=== PATIENT | female | born 1945 | race Caucasian/White ===

== ENCOUNTER 2017-08-11 15:10 | Emergency (ER) | payer OTHER ==
[~2017-08-11] VITALS: Ht 167.6 cm; Wt 79.4 kg
--- NOTE | ~2017-08-11 | EKG ---
[place] [address] [facility] [employer] [facility] [place] [address] ELECTROCARDIOGRAM REPORT Name: JOCELINEMICHELLE Joao Room #: [facility]#: [id number] Admission: 08/11/17 Attend Phys: Discharge: 08/11/17 Date of : 47 Report #: [id number] THIS REPORT FOR: //name// [facility] ED Test Date: 2017-08-11 Test Time: 16:06:47 Pat Name: MICHELLE CAR Department: Room: Gender: F Animal Science Instructor: hi : 1945 Requested By: Lobo Dobbins Order Number: [id number] MD: Homero Lara Measurements Intervals [place] Rate: 73 P: -82 DE: 180 QRS: 20 QRSD: 95 T: -12 QT: 412 QTc: 454 Interpretive Statements Sinus or ectopic atrial rhythm Compared to ECG 02/25/2016 15:03:59 Ectopic atrial rhythm now present Electronically Signed On 08-12-2017 7:51:17 CDT by Homero Lara [email or web address] <ELECTRONICALLY SIGNED> By: Homero Lara MD 08/12/17 0751 D: 06/1605 05 Homero Lara MD /STEPHANIE
[~2017-08-11 15:10] MED LIST: ADULT LOW DOSE81 MG PO; AMARYL4 MG PO; AMIODARONE HCL400 MG PO; AMLODIPINE BESY10 MG PO; AMLODIPINE BESYL5 MG PO; ASPIR 8181 MG PO; ASPIRIN81 M2 PO; ATIVAN0.5 MG PO; CATAPRES0.2 MG PO; CIPRO500 MG PO; CIPROFLOXACIN500 M1 PO; DIFLUCAN150 MG PO; DILTIAZEM 24HR180 M1 PO; DILTIAZEM 24HR240 M1 PO; DOXYCYCLINE HY100 MG PO; FLOMAX0.4 MG PO; FLONASE 0.05%50 MCG NASAL; GLUCOPHAGE500 MG PO; HYDROCHLOROTHIA25 M1 PO; HYDROCODON-ACE1 EAC8 PO; HYDROCODONE-AP1 EAC6 PO; HYDROCODONE-APA1 TA1 PO; IRON325 PO; LASIX 40 MG TAB40 M2 PO; LIDOCAINE HCL 210 M1; LISINOPRIL-HCT1 EAC2 PO; LISINOPRIL20 MG PO; MEDROLDOSEPACK; METFORMIN HCL500 MG PO; METOPROLOL SUCC50 MG PO; MOBIC15 MG PO; MULTIVITAMINS PO; MULTIVITAMINS1 EAC7; NORVASC10 MG PO; PACERONE 200 M200 M1 PO; PERCOCET 5-3251 EACH PO; PRINZIDE 20-251 EACH PO; ROBAXIN 750 MG750 M1 PO; TOPROL XL25 MG PO; TRADJENTA5 MG PO; TYLENOL325 MG PO; XARELTO20 MG PO
[2017-08-11 15:45] LABS: ABSOLUTE NEUTROPHILS 8.2 thou/uL (1.4-8.2); EOSINOPHILS 4.7 % (0.0-3.0); HEMATOCRIT 40.1 % (37.0-47.0); HEMOGLOBIN 13.1 gm/dL (12.0-15.0); LYMPHOCYTES 12.8 % (24.0-44.0); MCH 27.8 pg (26.0-34.0); MCHC 32.7 g/dL (28.0-37.0); MCV 84.9 fL (80.0-100.0); MONOCYTES 6.4 % (1.0-8.0); PLATELET COUNT 493 thou/uL (150-400); POLYS 75.1 % (36.0-66.0); RBC 4.72 mil/uL (4.20-5.00); RDW 15.4 % (10.5-14.5); WBC 10.9 thou/uL (4.0-11.0)
[2017-08-11 15:55] LABS: ANION GAP 8 mmol/L (7-16); BUN 24 mg/dL (7-18); CALCIUM 9.3 mg/dL (8.5-10.1); CHLORIDE 104 mmol/L (98-107); CO2 26 mmol/L (21-32); GLUCOSE 125 mg/dL (74-106); POTASSIUM 4.1 mmol/L (3.5-5.1); SODIUM 138 mmol/L (136-145)
[2017-08-11 16:03] LABS: ALBUMIN 3.6 g/dL (3.4-5.0); MAGNESIUM 1.5 mg/dL (1.8-2.4); SGOT 23 U/L (15-37); SGPT 33 U/L (30-65); TOTAL BILIRUBIN 0.4 mg/dL (<0.1-1.0); TOTAL PROTEIN 7.4 g/dL (6.4-8.2); TROPONIN-I < 0.04 ng/mL (<0.06)
[2017-08-11] MEDS ORDERED: VALIUM2 MG PO (16:36)
[2017-08-11] MEDS ORDERED: MAG-OXIDE400 MG PO (16:36)
[2017-08-11] MEDS ORDERED: ANTIVERT25 MG PO (16:36)
[2017-08-11 17:17] LABS: URINE BILIRUBIN NEGATIVE (Negative); URINE BLOOD NEGATIVE (Negative); URINE CLARITY CLEAR; URINE COLOR YELLOW; URINE GLUCOSE-RANDOM* NEGATIVE (Negative); URINE KETONES NEGATIVE (Negative); URINE PROTEIN (DIPSTICK) TRACE (Negative); URINE SPECIFIC GRAVITY 1.025 (1.005-1.035); URINE UROBILINOGEN 0.2 E.U./dl (0.2-1.0)
[2017-08-11 17:21] LABS: URINE LEUKOCYTES-REFLEX TRACE (Negative); URINE NITRITE-REFLEX POSITIVE (Negative)
[2017-08-11] MEDS ORDERED: PREDNISONE 20 M20 MG PO (17:23)
[2017-08-11 17:28] LABS: SQUAMOUS 0-3 Few /LPF (0-3)
[2017-08-11 17:29] LABS: BACTERIA-REFLEX >30 Many /HPF (None Seen); CASTS None Seen /LPF (None Seen); CRYSTALS None Seen /LPF (None Seen); URINE WBC-REFLEX 6-15 Few /HPF (0-5)
[2017-08-11 17:30] LABS: URINE RBC None Seen /HPF (0-2)
== END 2017-08-11 18:15 | disposition home or self-care (01) ==
LOC: ER 15:10
PROVIDERS: Emergency Medicine
DX: H81.10 Benign paroxysmal vertigo, unspecified ear (principal); E83.42 Hypomagnesemia; J44.9 Chronic obstructive pulmonary disease, unspecified; E11.9 Type 2 diabetes mellitus without complications; M54.9 Dorsalgia, unspecified; G89.29 Other chronic pain; E78.00 Pure hypercholesterolemia, unspecified; I11.0 Hypertensive heart disease with heart failure; I50.9 Heart failure, unspecified; Z88.0 Allergy status to penicillin; Z88.1 Allergy status to other antibiotic agents; Z88.2 Allergy status to sulfonamides

== ENCOUNTER 2017-12-09 21:42 | Inpatient (IN) | payer OTHER ==
[~2017-12-09] VITALS: Ht 167.6 cm; Wt 79.5 kg
--- NOTE | ~2017-12-09 | EKG ---
[address] [address] ELECTROCARDIOGRAM REPORT Name: JOCELINEMICHELLE Joao Room #: 202-P ADM IN M.R.#: [id number] Admission: 12/09/17 Attend Phys: Marjorie Kendall Discharge: Date of : 47 Report #: [id number] THIS REPORT FOR: //name// [facility] ED Test Date: 2017-12-09 Test Time: 22:48:13 Pat Name: MICHELLE CAR Department: Room: 202 Gender: F Air Battle Manager: juan ramon : 1945 Requested By: Kody Bailey Order Number: [id number] MD: Homero Lara Measurements Intervals [place] Rate: 116 P: NE: QRS: 16 QRSD: 90 T: -2 QT: 409 QTc: 569 Interpretive Statements Atrial fibrillation Compared to ECG 08/11/2017 16:06:47 Ectopic atrial rhythm no longer present Electronically Signed On 12-10-2017 8:21:33 CDT by Homero Lara [email or web address] <ELECTRONICALLY SIGNED> By: Homero Lara MD 12/10/17 0821 2248 47 Homero Lara MD /STEPHANIE
--- NOTE | ~2017-12-09 | HC ---
[facility] [place] [place] [address] CONSULTATION Name: JOCELINEMICHELLE Shepherd Room #: 202-P [facility] IN M.R.#: [id number] Admission: 12/09/17 Attend Phys: Marjorie Kendall Discharge: Date of : 47 Report #: [id number] THIS REPORT FOR: //name// CC: Marjorie Arora DATE OF SERVICE: 12/10/2017 HISTORY OF PRESENT ILLNESS: The patient is a 72-year-old female who was seen on 12/10/2017. I was not able to write a note at that time because the patient was not on my list. The patient was seen Wednesday afternoon after a code stroke had been called. The patient had slurred speech and left-sided weakness. At that time, a fingerstick was done. The patient's blood sugar was 65. However, a chemistry panel was not drawn. The patient was given apple juice. A fingerstick was repeated and the patient's blood sugar was 80. The patient had initially been admitted to the hospital for increasing disorientation and difficulty finding words. She had not been taking her daily medications, which is unusual for her. When the patient's daughter went to the home that evening, she noticed that her mother had vomited. The patient had also complained of headache. Although, the patient did not have a headache at that time, the patient has a history of atrial fibrillation and was on Xarelto. When I saw the patient, her daughter was in the room. She stated that her mother had taken Xarelto within the past 48 hours. When her mother was admitted to the hospital, she was found to have a urinary tract infection. The patient lives with her son. The patient's daughter with whom I spoke was unhappy because of the way her brother was taking care of her mother. She was not pleased with the kind of food the patient was eating. She knew that her brother was buying cookies and the daughter did not want her mother eating those because she has diabetes. PAST MEDICAL HISTORY: Diabetes mellitus, hypertension, stroke, atrial fibrillation, chronic kidney disease, congestive heart failure, peripheral neuropathy, hyperlipidemia. PAST SURGICAL HISTORY: Partial hysterectomy, lung surgery in 1995. MEDICATIONS: Amiodarone 200 mg b.i.d., clonidine 0.1 mg b.i.d., metoprolol 50 mg b.i.d., Norvasc 10 mg daily, Xarelto 20 mg daily. At home, the patient also takes p.r.n. meclizine 25 mg and p.r.n. diazepam. ALLERGIES: CEPHALEXIN, LATEX, PENICILLIN, AND SULFA. PHYSICAL EXAMINATION: VITAL SIGNS: Temperature 37.1, pulse rate 129, respiratory rate 18, blood pressure 150/112. Bedside pulse oximetry 95% on room air. LABORATORY DATA: White blood cell count 14.2, hemoglobin 12.5, hematocrit 37.7, [address] [address] CONSULTATION Name: JOCELINEMICHELLE Shepherd Room #: 202-P [facility] IN ..#: [id number] Admission: 12/09/17 Attend Phys: Marjorie Kendall Discharge: Date of : 47 Report #: [id number] MCV 86.2, platelet count 451,000. Urinalysis 1+ leukocyte esterase, many bacteria. Chemistry: Sodium 141, potassium 2.9, chloride 103, carbon dioxide 27, BUN 21, creatinine 1.2, glucose 116, calcium 8.3, phosphorus 4.1, magnesium 1.7, total bilirubin 0.7, AST 23, ALT 24, alkaline phosphatase 76, total protein 7.9, albumin 2.6, B12 of 125, folate 16.2. TSH 3.181. IMAGING: CT scan of the head demonstrates atrophy, no acute process. MRI of the head demonstrates moderate to severe periventricular and subcortical white matter disease, no acute intracranial abnormality seen. NEURO EXAM: Cranial nerves 2-12 are grossly intact. Motor exam demonstrates symmetrical strength in all 4 extremities with tone and bulk normal. Reflexes are trace throughout. Plantar responses are mute bilaterally. There is no evidence of dysmetria. Gait is not tested. IMPRESSION: This patient most likely has mild cognitive impairment. The MRI of the head was ordered yesterday when I saw her as was the B12 level and TSH. The B12 level is now proven to be quite low and she will require supplemental IM B12. I would not give this patient diazepam as it can interfere with her memory in addition to her balance as well. I think the patient would also benefit from PT, OT and perhaps even a rehab consult. Her daughter tells me the patient is quite inactive. I thank you for your kind referral of the patient. <ELECTRONICALLY SIGNED> By: Julia Hall DO 12/15/17 1155 1114 2356 Julia Hall DO /nt
[~2017-12-09 21:42] MED LIST changes: +ANTIVERT25 MG PO; +MAG-OXIDE400 MG PO; +PREDNISONE 20 M20 MG PO; +VALIUM2 MG PO
[2017-12-09 21:45] VITALS: BP 155/67
[2017-12-09 23:10] LABS: ABSOLUTE NEUTROPHILS 15.8 thou/uL (1.4-8.2); BASOPHILS 0.5 % (0.0-2.0); EOSINOPHILS 0.3 % (0.0-3.0); HEMATOCRIT 41.1 % (37.0-47.0); HEMOGLOBIN 13.6 gm/dL (12.0-15.0); LYMPHOCYTES 6.5 % (24.0-44.0); MCH 28.8 pg (26.0-34.0); MCHC 33.2 g/dL (28.0-37.0); MCV 86.7 fL (80.0-100.0); MONOCYTES 3.6 % (1.0-8.0); PLATELET COUNT 519 thou/uL (150-400); POLYS 89.1 % (36.0-66.0); RBC 4.73 mil/uL (4.20-5.00); RDW 14.7 % (10.5-14.5); WBC 17.8 thou/uL (4.0-11.0)
[2017-12-09 23:19] LABS: ANION GAP 11 mmol/L (7-16); BUN 29 mg/dL (7-18); CALCIUM 10.2 mg/dL (8.5-10.1); CHLORIDE 98 mmol/L (98-107); CO2 25 mmol/L (21-32); GLUCOSE 211 mg/dL (74-106); POTASSIUM 4.7 mmol/L (3.5-5.1); SODIUM 134 mmol/L (136-145)
[2017-12-09 23:28] LABS: ALBUMIN 3.6 g/dL (3.4-5.0); SGOT 23 U/L (15-37); SGPT 24 U/L (30-65); TOTAL BILIRUBIN 0.7 mg/dL (<0.1-1.0); TOTAL PROTEIN 7.9 g/dL (6.4-8.2); TROPONIN-I <0.06 ng/mL (<0.06)
[2017-12-09 23:28] LABS: URINE BLOOD TRACE (Negative); URINE CLARITY CLEAR; URINE COLOR YELLOW; URINE GLUCOSE-RANDOM* NEGATIVE (Negative); URINE KETONES TRACE (Negative); URINE NITRITE-REFLEX NEGATIVE (Negative); URINE PROTEIN (DIPSTICK) 2+ (Negative); URINE SPECIFIC GRAVITY >= 1.030 (1.005-1.035); URINE UROBILINOGEN 0.2 E.U./dl (0.2-1.0)
[2017-12-09 23:29] LABS: URINE LEUKOCYTES-REFLEX 1+ (Negative)
[2017-12-09 23:30] LABS: ICTOTEST (BILI CONFIRMATORY) Negative (Negative); URINE BILIRUBIN NEGATIVE (Negative)
[2017-12-09 23:37] LABS: BACTERIA-REFLEX >30 Many /HPF (None Seen); CRYSTALS None Seen /LPF (None Seen); FINE GRANULAR CASTS 4-10 Moderate /LPF (None Seen); SQUAMOUS 0-3 Few /LPF (0-3); URINE WBC-REFLEX >25 Many /HPF (0-5)
[2017-12-09 23:38] LABS: WBC CLUMPS Few (None Seen)
[2017-12-10] VITALS (8 sets, daily range): BP systolic 106–159; BP diastolic 52–115
[2017-12-10 03:39] LABS: HEMATOCRIT 37.7 % (37.0-47.0); HEMOGLOBIN 12.5 gm/dL (12.0-15.0); MCH 28.5 pg (26.0-34.0); MCHC 33.1 g/dL (28.0-37.0); MCV 86.2 fL (80.0-100.0); RBC 4.37 mil/uL (4.20-5.00); RDW 14.8 % (10.5-14.5); WBC 14.2 thou/uL (4.0-11.0)
[2017-12-10 03:43] LABS: CALCIUM 8.6 mg/dL (8.5-10.1); CREATININE 1.7 mg/dL (0.6-1.0); POTASSIUM 4.1 mmol/L (3.5-5.1)
[2017-12-10 04:19] LABS: FOLIC ACID 16.2 ng/mL (8.6-58.9)
[2017-12-11] VITALS (9 sets, daily range): BP systolic 140–157; BP diastolic 53–112
[2017-12-11 05:28] LABS: ALBUMIN 2.6 g/dL (3.4-5.0); CALCIUM 8.3 mg/dL (8.5-10.1); CREATININE 1.2 mg/dL (0.6-1.0); PHOSPHORUS 4.1 mg/dL (2.5-4.9)
[2017-12-11 05:29] LABS: POTASSIUM 2.9 mmol/L (3.5-5.1)
[2017-12-12 00:15] VITALS: BP 153/79
[2017-12-12 04:23] VITALS: BP 158/64
[2017-12-12 04:41] LABS: ALBUMIN 2.8 g/dL (3.4-5.0); CALCIUM 8.8 mg/dL (8.5-10.1); MAGNESIUM 1.4 mg/dL (1.8-2.4); PHOSPHORUS 3.2 mg/dL (2.5-4.9); POTASSIUM 3.7 mmol/L (3.5-5.1)
[2017-12-12 07:20] VITALS: BP 178/66
[2017-12-12 11:25] VITALS: BP 137/63
[2017-12-12 15:30] VITALS: BP 173/83
[2017-12-12 19:26] VITALS: BP 189/89
[2017-12-13 04:35] VITALS: BP 155/99
[2017-12-13 07:20] VITALS: BP 178/97
[2017-12-13 11:50] VITALS: BP 135/65
[2017-12-13 15:45] VITALS: BP 138/73
[2017-12-13 18:13] VITALS: BP 138/73
[2017-12-13 20:08] VITALS: BP 179/67
[2017-12-14] VITALS (7 sets, daily range): BP systolic 129–185; BP diastolic 65–91
[2017-12-14 04:05] LABS: HEMATOCRIT 36.6 % (37.0-47.0); MCH 28.4 pg (26.0-34.0); MCHC 32.7 g/dL (28.0-37.0); MCV 86.8 fL (80.0-100.0); RBC 4.22 mil/uL (4.20-5.00); RDW 14.8 % (10.5-14.5); WBC 11.4 thou/uL (4.0-11.0)
[2017-12-15 00:34] VITALS: BP 181/66
[2017-12-15 04:32] VITALS: BP 152/63
[2017-12-15 07:21] VITALS: BP 183/64
[2017-12-15] MEDS ORDERED: CATAPRES0.1 MG PO (10:04)
[2017-12-15] MEDS ORDERED: ACETAMINOPHEN325 M1 PO (10:05)
[2017-12-15] MEDS ORDERED: LEVAQUIN 500 M500 M2 PO (10:11)
[2017-12-15 11:54] VITALS: BP 129/63
== END 2017-12-15 14:04 | DRG 871 ==
LOC: ER 21:42 → 2N 23:48 → EROBS 23:48 → 2N 12-10 02:00
PROVIDERS: Emergency Medicine; Hospitalist; Nurse Practitioner Family
DX: A41.59 Other Gram-negative sepsis (principal); G93.41 Metabolic encephalopathy; I13.0 Hypertensive heart and chronic kidney disease with heart failure and stage 1 through stage 4 chronic kidney disease, or unspecified chronic kidney disease; N17.9 Acute kidney failure, unspecified; N39.0 Urinary tract infection, site not specified; I50.9 Heart failure, unspecified; R65.20 Severe sepsis without septic shock; I48.2 Chronic atrial fibrillation; D64.9 Anemia, unspecified; M54.9 Dorsalgia, unspecified; G89.29 Other chronic pain; M54.30 Sciatica, unspecified side; F03.90 Unspecified dementia, unspecified severity, without behavioral disturbance, psychotic disturbance, mood disturbance, and anxiety; E53.8 Deficiency of other specified B group vitamins; B96.1 Klebsiella pneumoniae [K. pneumoniae] as the cause of diseases classified elsewhere; E83.42 Hypomagnesemia; E11.22 Type 2 diabetes mellitus with diabetic chronic kidney disease; E11.42 Type 2 diabetes mellitus with diabetic polyneuropathy; E78.00 Pure hypercholesterolemia, unspecified; N18.3 Chronic kidney disease, stage 3 (moderate); F41.9 Anxiety disorder, unspecified; Z86.73 Personal history of transient ischemic attack (TIA), and cerebral infarction without residual deficits; Z87.442 Personal history of urinary calculi; Z90.710 Acquired absence of both cervix and uterus; Z79.4 Long term (current) use of insulin; Z79.82 Long term (current) use of aspirin; Z79.84 Long term (current) use of oral hypoglycemic drugs; Z79.899 Other long term (current) drug therapy; Z88.0 Allergy status to penicillin; Z88.2 Allergy status to sulfonamides; Z88.8 Allergy status to other drugs, medicaments and biological substances; Z91.040 Latex allergy status; Z23 Encounter for immunization
CPT/HCPCS: 10081

== ENCOUNTER 2018-10-23 13:44 | Emergency (ER) | payer OTHER ==
[~2018-10-23] VITALS: Ht 170.2 cm; Wt 80.3 kg
[~2018-10-23 13:44] MED LIST changes: +ACETAMINOPHEN325 M1 PO; +CATAPRES0.1 MG PO; +LEVAQUIN 500 M500 M2 PO
[2018-10-23 14:34] LABS: ABSOLUTE NEUTROPHILS 10.2 thou/uL (1.4-8.2); BASOPHILS 0.9 % (0.0-2.0); EOSINOPHILS 3.3 % (0.0-3.0); HEMATOCRIT 32.5 % (37.0-47.0); HEMOGLOBIN 10.5 gm/dL (12.0-15.0); LYMPHOCYTES 6.9 % (24.0-44.0); MCH 24.5 pg (26.0-34.0); MCHC 32.1 g/dL (28.0-37.0); MCV 76.2 fL (80.0-100.0); MONOCYTES 6.2 % (1.0-8.0); PLATELET COUNT 407 thou/uL (150-400); POLYS 82.7 % (36.0-66.0); RBC 4.27 mil/uL (4.20-5.00); RDW 15.5 % (10.5-14.5); WBC 12.3 thou/uL (4.0-11.0)
[2018-10-23 14:38] LABS: ANION GAP 8 mmol/L (7-16); BUN 47 mg/dL (7-18); CALCIUM 8.7 mg/dL (8.5-10.1); CHLORIDE 103 mmol/L (98-107); CO2 22 mmol/L (21-32); CREATININE 1.8 mg/dL (0.6-1.0); GLUCOSE 235 mg/dL (74-106); POTASSIUM 5.3 mmol/L (3.5-5.1); SODIUM 133 mmol/L (136-145)
[2018-10-23 14:49] LABS: ALBUMIN 3.1 g/dL (3.4-5.0); LIPASE 349 U/L (73-393); SGOT 12 U/L (15-37); SGPT 13 U/L (30-65); TOTAL BILIRUBIN 0.3 mg/dL (<0.1-1.0); TOTAL PROTEIN 6.7 g/dL (6.4-8.2); TROPONIN-I <0.06 ng/mL (<0.06)
[2018-10-23 15:52] LABS: URINE BILIRUBIN NEGATIVE (Negative); URINE BLOOD NEGATIVE (Negative); URINE CLARITY CLEAR; URINE COLOR YELLOW; URINE GLUCOSE-RANDOM* NEGATIVE (Negative); URINE KETONES NEGATIVE (Negative); URINE NITRITE-REFLEX NEGATIVE (Negative); URINE PROTEIN (DIPSTICK) NEGATIVE (Negative); URINE SPECIFIC GRAVITY 1.025 (1.005-1.035); URINE UROBILINOGEN 0.2 E.U./dl (0.2-1.0)
[2018-10-23 15:54] LABS: URINE LEUKOCYTES-REFLEX 1+ (Negative)
[2018-10-23 16:01] LABS: SQUAMOUS >10 Many /LPF (0-3); URINE WBC-REFLEX 6-15 Few /HPF (0-5)
[2018-10-23 16:02] LABS: BACTERIA-REFLEX >30 Many /HPF (None Seen); CASTS None Seen /LPF (None Seen); CRYSTALS None Seen /LPF (None Seen); RENAL EPITHELIAL CELLS 0-3 Few /LPF (None Seen); URINE RBC None Seen /HPF (0-2)
[2018-10-23 16:56] LABS: URINE BILIRUBIN NEGATIVE (Negative); URINE BLOOD TRACE (Negative); URINE CLARITY CLEAR; URINE COLOR YELLOW; URINE GLUCOSE-RANDOM* NEGATIVE (Negative); URINE KETONES NEGATIVE (Negative); URINE LEUKOCYTES-REFLEX NEGATIVE (Negative); URINE NITRITE-REFLEX NEGATIVE (Negative); URINE PROTEIN (DIPSTICK) NEGATIVE (Negative); URINE SPECIFIC GRAVITY 1.025 (1.005-1.035); URINE UROBILINOGEN 0.2 E.U./dl (0.2-1.0)
[2018-10-23 18:08] VITALS: BP 104/56
--- NOTE | 2018-10-24 07:54 | EKG ---
[place] [address] [facility] [employer] [place] [address] ELECTROCARDIOGRAM REPORT Name: MICHELLE CAR [id number] Admission: 10/23/18 Attend Phys: Discharge: 10/23/18 Date of : 47 Report #: [id number] THIS REPORT FOR: //name// [facility] ED Test Date: 2018-10-23 Test Time: 14:08:13 Pat Name: MICHELLE CAR Department: Room: Gender: F Character Actress: [facility] : 1945 Requested By: Koko Cox Order Number: [id number] MD: Delta Silva Measurements Intervals [place] Rate: 72 P: [place]: QRS: 15 QRSD: 91 T: 19 QT: 419 QTc: 459 Interpretive Statements Atrial fibrillation Compared to ECG 12/09/2017 22:48:13 No significant changes Electronically Signed On 10-24-2018 7:54:12 CDT by Delta Silva [email or web address] <ELECTRONICALLY SIGNED> By: Delta Silva MD, [facility] 10/24/18 0754 1408 1408 Delta Silva MD, FACC /EPI
== END 2018-10-23 18:08 | disposition home or self-care (01) ==
LOC: ER 13:44
PROVIDERS: Physician Assistant
DX: N17.9 Acute kidney failure, unspecified (principal); E86.0 Dehydration; R53.1 Weakness; E11.22 Type 2 diabetes mellitus with diabetic chronic kidney disease; I13.0 Hypertensive heart and chronic kidney disease with heart failure and stage 1 through stage 4 chronic kidney disease, or unspecified chronic kidney disease; N18.3 Chronic kidney disease, stage 3 (moderate); M54.9 Dorsalgia, unspecified; G89.29 Other chronic pain; G90.09 Other idiopathic peripheral autonomic neuropathy; E78.00 Pure hypercholesterolemia, unspecified; I48.91 Unspecified atrial fibrillation; I25.10 Atherosclerotic heart disease of native coronary artery without angina pectoris; I50.33 Acute on chronic diastolic (congestive) heart failure; F41.9 Anxiety disorder, unspecified; Z86.2 Personal history of diseases of the blood and blood-forming organs and certain disorders involving the immune mechanism; Z87.442 Personal history of urinary calculi; Z90.711 Acquired absence of uterus with remaining cervical stump; Z86.73 Personal history of transient ischemic attack (TIA), and cerebral infarction without residual deficits; Z88.0 Allergy status to penicillin; Z88.2 Allergy status to sulfonamides; Z88.1 Allergy status to other antibiotic agents; Z91.040 Latex allergy status

== ENCOUNTER 2018-10-28 15:35 | Inpatient (IN) | payer OTHER ==
[~2018-10-28] VITALS: Ht 170.2 cm; Wt 80.3 kg
[2018-10-28 15:43] VITALS: BP 146/62
[2018-10-28 16:06] LABS: ABSOLUTE NEUTROPHILS 12.1 thou/uL (1.4-8.2); BASOPHILS 0.6 % (0.0-2.0); EOSINOPHILS 3.5 % (0.0-3.0); HEMATOCRIT 36.8 % (37.0-47.0); HEMOGLOBIN 11.9 gm/dL (12.0-15.0); LYMPHOCYTES 7.7 % (24.0-44.0); MCH 24.4 pg (26.0-34.0); MCHC 32.4 g/dL (28.0-37.0); MCV 75.5 fL (80.0-100.0); MONOCYTES 5.8 % (1.0-8.0); PLATELET COUNT 561 thou/uL (150-400); POLYS 82.4 % (36.0-66.0); RBC 4.88 mil/uL (4.20-5.00); RDW 15.7 % (10.5-14.5); WBC 14.6 thou/uL (4.0-11.0)
[2018-10-28 16:14] LABS: ANION GAP 10 mmol/L (7-16); BUN 21 mg/dL (7-18); CALCIUM 9.2 mg/dL (8.5-10.1); CHLORIDE 100 mmol/L (98-107); CO2 23 mmol/L (21-32); CREATININE 1.3 mg/dL (0.6-1.0); GLUCOSE 133 mg/dL (74-106); POTASSIUM 4.7 mmol/L (3.5-5.1); SODIUM 133 mmol/L (136-145)
[2018-10-28 16:24] LABS: ALBUMIN 3.7 g/dL (3.4-5.0); MAGNESIUM 1.8 mg/dL (1.8-2.4); SGOT 11 U/L (15-37); SGPT 14 U/L (30-65); TOTAL BILIRUBIN 0.4 mg/dL (<0.1-1.0); TOTAL PROTEIN 7.7 g/dL (6.4-8.2); TROPONIN-I <0.06 ng/mL (<0.06)
[2018-10-28 16:30] LABS: URINE BILIRUBIN NEGATIVE (Negative); URINE BLOOD NEGATIVE (Negative); URINE CLARITY CLEAR; URINE COLOR YELLOW; URINE GLUCOSE-RANDOM* NEGATIVE (Negative); URINE KETONES NEGATIVE (Negative); URINE LEUKOCYTES-REFLEX TRACE (Negative); URINE NITRITE-REFLEX NEGATIVE (Negative); URINE PROTEIN (DIPSTICK) NEGATIVE (Negative); URINE SPECIFIC GRAVITY <= 1.005 (1.005-1.035); URINE UROBILINOGEN 0.2 E.U./dl (0.2-1.0)
[2018-10-28 17:36] VITALS: BP 125/62; BP 127/57
[2018-10-28 17:40] VITALS: BP 125/62; BP 127/57
[2018-10-28] MEDS ORDERED: CLONIDINE HCL0.2 M2 PO (18:30)
[2018-10-28] MEDS ORDERED: LISINOPRIL20 MG PO (18:32)
[2018-10-28] MEDS ORDERED: DEMADEX20 MG PO (18:32)
[2018-10-28] MEDS ORDERED: PROZAC10 MG PO (18:32)
[2018-10-28] MEDS ORDERED: NORCO 5-325 TA1 EAC1 PO (18:33)
[2018-10-28] MEDS ORDERED: SPIRONOLACTONE25 M1 PO (18:33)
[2018-10-28] MEDS ORDERED: AMARYL4 MG PO (18:33)
[2018-10-28] MEDS ORDERED: COREG25 MG PO (18:34)
[2018-10-28 20:55] VITALS: BP 131/53
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
[2018-10-29 04:00] VITALS: BP 145/63
[2018-10-29 05:27] LABS: HEMATOCRIT 35.6 % (37.0-47.0); HEMOGLOBIN 11.4 gm/dL (12.0-15.0); MCH 24.2 pg (26.0-34.0); MCV 75.7 fL (80.0-100.0); RBC 4.7 mil/uL (4.20-5.00); RDW 15.7 % (10.5-14.5); WBC 11.7 thou/uL (4.0-11.0)
[2018-10-29 05:51] LABS: CALCIUM 8.7 mg/dL (8.5-10.1); CREATININE 1.1 mg/dL (0.6-1.0); POTASSIUM 4.5 mmol/L (3.5-5.1)
--- NOTE | 2018-10-29 06:40 | NUR ---
The pt. used bed side commode in the nite often using walker also for balance for transfer with staff stand by assist. This morning she c.o. "all-over achiness". Slept off and on in the nite. Had IV ABT given per order. No c.o. blurred vision or "seeing dots" thru the nite, but left LE and "all-over" pain 3/10.
[2018-10-29 08:33] VITALS: BP 153/53
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
--- NOTE | 2018-10-29 15:57 | NUR ---
Assumed care of pt at 1200. SBA to the bedside commode. No c/o pain. BM today. IVF infusing. Fall precautions in place. Will continue to monitor.
[2018-10-29 16:06] VITALS: BP 116/48
[2018-10-29 20:10] VITALS: BP 144/43
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
[2018-10-30 03:00] VITALS: BP 133/54
[2018-10-30 08:11] VITALS: BP 146/57
[2018-10-30] MEDS ORDERED: KEFLEX500 M1 PO (09:11)
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
[2018-10-30 13:26] VITALS: BP 146/57
--- NOTE | 2018-10-30 15:44 | NUR ---
Patient has done well today, up with stand-by asist to the bathroom; consumed adequate amounts of food. She verbalized no complaints of pain. Let lower extremity continues with redness and 2+ pitting edema. LSCTA, BS's 4, abdomen soft et non-tender, skin is clean, warm, dry et intact. Daughter present for Discharge Instructions. Patient verbalized an understanding to all Discharge Insructions before signing Discharge Paperwork. Patient escorted out in wheelchair with daughter et belongings at side.
--- NOTE | 2018-10-30 15:56 | NUR ---
Pt discharged to home.
--- NOTE | 2018-11-01 07:43 | EKG ---
[address] [place] [address] ELECTROCARDIOGRAM REPORT Name: JOCELINEMICHELLE S Room #: 418-P [facility] IN .R.#: [id number] Admission: 10/28/18 Attend Phys: Ridge Hilton MD Discharge: 10/30/18 Date of : 47 Report #: [id number] THIS REPORT FOR: //name// [facility] ED Test Date: 2018-10-28 Test Time: 16:23:23 Pat Name: MICHELLE CAR Department: Room: [facility] Gender: F Roofing Supervisor: WG : 1945 Requested By: Trell Small Order Number: [id number] MD: Delta Silva Measurements Intervals [place] Rate: 86 P: [place]: QRS: 6 QRSD: 91 T: 6 QT: 380 QTc: 455 Interpretive Statements Atrial fibrillation Otherwise no significant abnormality Compared to ECG 10/23/2018 14:08:13 No significant change was found Electronically Signed On 11-01-2018 7:43:33 CDT by Delta Silva [email or web address] <ELECTRONICALLY SIGNED> By: Delta Silva MD, [facility] 11/01/18 0743 1623 162 Delta Silva MD, [facility] /EPI
== END 2018-10-30 15:58 | disposition home or self-care (01) | DRG 603 ==
LOC: ER 15:35 → EROBS 16:58 → 4E 18:44
PROVIDERS: Emergency Medicine; ADMIT Hospitalist
DX: L03.116 Cellulitis of left lower limb (principal); I13.0 Hypertensive heart and chronic kidney disease with heart failure and stage 1 through stage 4 chronic kidney disease, or unspecified chronic kidney disease; E11.42 Type 2 diabetes mellitus with diabetic polyneuropathy; E78.00 Pure hypercholesterolemia, unspecified; N18.3 Chronic kidney disease, stage 3 (moderate); I48.2 Chronic atrial fibrillation; J44.9 Chronic obstructive pulmonary disease, unspecified; F41.9 Anxiety disorder, unspecified; I50.9 Heart failure, unspecified; Z90.710 Acquired absence of both cervix and uterus; Z86.73 Personal history of transient ischemic attack (TIA), and cerebral infarction without residual deficits; Z79.01 Long term (current) use of anticoagulants; Z87.891 Personal history of nicotine dependence; Z79.899 Other long term (current) drug therapy; Z88.0 Allergy status to penicillin; Z88.2 Allergy status to sulfonamides; Z88.8 Allergy status to other drugs, medicaments and biological substances; Z91.040 Latex allergy status
CPT/HCPCS: 10084

== ENCOUNTER 2019-07-17 12:37 | Inpatient (IN) | payer OTHER ==
[~2019-07-17] VITALS: Ht 170.2 cm; Wt 73.9 kg
[2019-07-17] VITALS (10 sets, daily range): BP systolic 107–192; BP diastolic 54–114
--- NOTE | ~2019-07-17 | HC ---
[facility] [place] [address] CONSULTATION Name: MICHELLE CAR Room #: 217-P ADM IN M.R.#: [id number] Admission: 07/17/19 Attend Phys: Gm Roberto MD Discharge: Date of : 47 Report #: [id number] THIS REPORT FOR: cc: FAM - Family physician unknown FAM - Family physician unknown Smooth Ocampo MD ~ CC: [facility] unknown Gm Roberto DATE OF SERVICE: 07/19/2019 HISTORY OF PRESENT ILLNESS: This is a 74-year-old female patient who was evaluated by me for altered mental status. The patient is a poor historian. I discussed the patient with the nurses looking after this patient and I called the patient's daughter and took most of the history from her as well as medical records. According to the daughter that this patient becomes confused when she has a urinary tract infection and daughter believes that that is what is going on. I reviewed a lot of her records in the computer and looks like she had been seen by neurologist in the past. She had MRI, which demonstrated pretty extensive changes. The patient does not know if she had a stroke in the past or not. REVIEW OF SYSTEMS: Positive for atrial fibrillation and she is being followed by the watch dial stoner for that. She also has multiple other signs of vascular disease. She has urinary tract infections. She has atrial flutter. She does have urinary symptoms. The review of systems is also positive for a bulging disk in the lower back, diabetes, CVA, chronic back pain, neuropathy, high cholesterol, partial hysterectomy, atrial fibrillation, multiple TIAs, anxiety and I talked to the daughter, she has to help with the patient in day-to-day activities. She has to be helped for shower as well as making food. She is able to eat herself. This was a relevant 14-point review of system. PAST MEDICAL HISTORY: Positive for TIA and stroke and what looks like dementia. She also has atrial fibrillation. FAMILY HISTORY: Unremarkable. SOCIAL HISTORY: She lives with the daughter and the circumstances described above and she is on anticoagulation at the moment. When the symptoms started, they did a CT scan of the head, which was reviewed and it was unremarkable. IMPRESSION: This patient does appear to have a baseline dementia, which got decompensated with urinary tract infections causing encephalopathy. That appeared to be the case in this patient at the moment. However, other [facility] [address] [facility] [place] [address] CONSULTATION Name: MICHELLE CAR Room #: 217-P [facility] IN .R.#: [id number] Admission: 07/17/19 Attend Phys: Gm Roberto MD Discharge: Date of : 47 Report #: [id number] etiologies need to be excluded. PHYSICAL EXAMINATION: Today indicates that she is alert. She is responsive. She did not know what month it was. She knew what hospital she was in. She was not able to name the president, although she indicated that she knows who he is. Cranial nerve examination is unremarkable. She does appear to have some weakness on the right side, but the records indicate that is her baseline. I think she knows what position sense is on both sides, but reflexes are diminished, but that may be her baseline. She has difficulty with palpation of her pulses. Heart appeared to be irregular. Blood pressure is 144/105, respirations 20, pulse is 112, temperature is 98.6. She does not have any thyroid mass. She is moderately built individual. She does not have any dysmorphic features of eyes, ears and face. Her hearing looks somewhat impaired. Her vision looks mostly unremarkable. RECOMMENDATION: I discussed the situation with the daughter and I talked to her that most likely she has encephalopathy secondary to her urinary tract infection. I think we should proceed with an EEG and MRI to further evaluate it. Daughter wants to proceed with that and I will schedule that test and follow up after that. Thank you very much for this referral. If you have any question, please feel free to contact me. By: 0834 0947 Smooth Ocampo MD /nt
--- NOTE | ~2019-07-17 | EEG ---
[facility] [place] [address] ELECTROENCEPHALOGRAM Name: MICHELLE CAR Room #: 217-P ADM IN M.R.#: [id number] Admission: 07/17/19 Attend Phys: Gm Roberto MD Discharge: Date of : 47 Report #: [id number] THIS REPORT FOR: //name// CC: FAM unknown Gm Roberto DATE OF SERVICE: 07/19/2019 This patient is being evaluated for altered mental status. EEG was done by placing the electrode by standard 10-20 system of electrode placement. Both referential and sequential montages were used for recording. Background activity in this patient is pretty disorganized and poorly formed. That would appear about 7 Hz and 30 microvolt. Photic stimulation is unremarkable. The patient appeared to be drowsy and that caused some further decrease in background activity. No active epileptiform activity was noticed during this record. IMPRESSION: This is a severely abnormal EEG because it is disorganized and poorly formed. That is a nonspecific abnormality, which can occur with dementia, effect of psychotropic medication, encephalopathy, etc. Clinical correlation is recommended. Thank you very much for this referral. By: 1553 1623 Smooth Ocampo MD /nt
[~2019-07-17 12:37] MED LIST changes: +CLONIDINE HCL0.2 M2 PO; +COREG25 MG PO; +DEMADEX20 MG PO; +KEFLEX500 M1 PO; +NORCO 5-325 TA1 EAC1 PO; +PROZAC10 MG PO; +SPIRONOLACTONE25 M1 PO
[2019-07-17 13:36] LABS: ABSOLUTE NEUTROPHILS 14.3 thou/uL (1.4-8.2); BASOPHILS 0.7 % (0.0-2.0); HEMATOCRIT 43.8 % (37.0-47.0); HEMOGLOBIN 14.3 gm/dL (12.0-15.0); LYMPHOCYTES 7.9 % (24.0-44.0); MCH 28.5 pg (26.0-34.0); MCHC 32.7 g/dL (28.0-37.0); MONOCYTES 6.8 % (1.0-8.0); PLATELET COUNT 617 thou/uL (150-400); POLYS 81.6 % (36.0-66.0); RBC 5.04 mil/uL (4.20-5.00); RDW 14.6 % (10.5-14.5); WBC 17.6 thou/uL (4.0-11.0)
[2019-07-17 13:51] LABS: ANION GAP 9 mmol/L (7-16); BUN 23 mg/dL (7-18); CALCIUM 8.8 mg/dL (8.5-10.1); CHLORIDE 103 mmol/L (98-107); CO2 26 mmol/L (21-32); CREATININE 1.2 mg/dL (0.6-1.0); GLUCOSE 192 mg/dL (74-106); POTASSIUM 4.8 mmol/L (3.5-5.1); SODIUM 138 mmol/L (136-145)
[2019-07-17 13:58] LABS: ALBUMIN 3.5 g/dL (3.4-5.0); SGOT 28 U/L (15-37); SGPT 39 U/L (30-65); TOTAL BILIRUBIN 0.4 mg/dL (<0.1-1.0); TOTAL PROTEIN 7.5 g/dL (6.4-8.2); TROPONIN-I <0.06 ng/mL (<0.06)
[2019-07-17 14:56] LABS: URINE BILIRUBIN NEGATIVE (Negative); URINE BLOOD 3+ (Negative); URINE CLARITY SL CLOUDY; URINE COLOR YELLOW; URINE GLUCOSE-RANDOM* NEGATIVE (Negative); URINE KETONES TRACE (Negative); URINE PROTEIN (DIPSTICK) 2+ (Negative); URINE SPECIFIC GRAVITY >= 1.030 (1.005-1.035); URINE UROBILINOGEN 0.2 E.U./dl (0.2-1.0)
[2019-07-17 14:59] LABS: URINE LEUKOCYTES-REFLEX 1+ (Negative); URINE NITRITE-REFLEX POSITIVE (Negative)
--- NOTE | 2019-07-17 15:00 | NUR ---
VERIFIED WITH PHARMACY THE COMPATABILITY OF DILTIAZEM AND SODIUM CHLORIDE
--- NOTE | 2019-07-17 15:01 | EKG ---
[facility] [place] [address] ELECTROCARDIOGRAM REPORT Name: MICHELLE CAR Room #: [facility]#: [id number] Admission: 07/17/19 Attend Phys: Discharge: Date of : 47 Report #: [id number] THIS REPORT FOR: cc: FAM - Family physician unknown FAM - Family physician unknown Homero Lara MD ~ THIS REPORT FOR: //name// [facility] ED Test Date: 2019-07-17 Test Time: 13:07:35 Pat Name: MICHELLE CAR Department: Room: Gender: F Ghost Writer: TIFFANY : 1945 Requested By: Annia Christy Order Number: [id number] MD: Homero Lara Measurements Intervals [place] Rate: 141 P: TN: QRS: 39 QRSD: 78 T: 38 QT: 300 QTc: 460 Interpretive Statements Atrial fibrillation Compared to ECG 10/28/2018 16:23:23 Atrial fibrillation no longer present Electronically Signed On 07-17-2019 14:59:41 CDT by Homero Lara [email or web address] <ELECTRONICALLY SIGNED> By: Homero Lara MD 07/17/19 1459 06 06 Homero Lara MD /STEPHANIE
[2019-07-17 15:02] LABS: BACTERIA-REFLEX >30 Many /HPF (None Seen); CASTS None Seen /LPF (None Seen); CRYSTALS None Seen /LPF (None Seen); SQUAMOUS 0-3 Few /LPF (0-3); TRANSITIONAL EPITHEL CELL 0-3 Few /LPF (None Seen); URINE WBC-REFLEX 6-15 Few /HPF (0-5)
[2019-07-17 15:03] LABS: URINE RBC 3-10 Few /HPF (0-2)
--- NOTE | 2019-07-17 15:19 | NUR ---
DR. INIGUEZ CONSULTED PER EMETERIO DEWITT
[2019-07-17 17:23] LABS: CHOLESTEROL 149 mg/dL (<200); HDL CHOLESTEROL 25 mg/dL (>40); LDL CHOLESTEROL 97 mg/dL (<100); TRIGLYCERIDE 139 mg/dL (<150); VLDL 28 mg/dL (<40)
--- NOTE | 2019-07-17 18:58 | NUR ---
Assumed care approx 1715. Pt transferred to 2N unit from ER. Pt c/o headached upon arrival. Rt shoulder pain subsided. Assessment as charted and VSS. Cardizem and Levaquin infusing per orders. Wound pictures taken of Rt Heel and placed in chart. Pt reports that she is a DNR status. Dr. Roberto notified for status change. Pt resting comfortably.
--- NOTE | 2019-07-18 03:53 | NUR ---
ASSUMED CARE OF PATIENT AT 1900. PATIENT IS PROGRESSING TOWARDS GOALS. PATIENT HAD BEEN ADMITTED F0R AFLUTTER WITH RVR AND PLACED ON CARDIZEM DRIP. PATIENT CONVERTED TO SINUS RHYTHM AT APPROXIMATELY 1937. PER RIA GRAJEDA, PATIENT CONTINUES ON CARDIZEM DRIP AT 5ML/HOUR UNTIL CARDIOLOGY CAN REVIEW. AT INITIAL ASSESSMENT PATIENT RATED PAIN 5/10 IN RIGHT SHOULDER AND REPORTED RELIEF AFTER ADMINISTRATION OF NORCO ORDERED. PATIENT SLEPT WELL THE REMAINDER OF NIGHT.
[2019-07-18 04:37] VITALS: BP 147/70
[2019-07-18 06:00] LABS: ABSOLUTE NEUTROPHILS 10.3 thou/uL (1.4-8.2); BASOPHILS 0.6 % (0.0-2.0); EOSINOPHILS 3.6 % (0.0-3.0); HEMATOCRIT 41.5 % (37.0-47.0); HEMOGLOBIN 13.3 gm/dL (12.0-15.0); MCH 28.2 pg (26.0-34.0); MCV 88.1 fL (80.0-100.0); MONOCYTES 5.1 % (1.0-8.0); POLYS 82.7 % (36.0-66.0); RBC 4.71 mil/uL (4.20-5.00); RDW 15.1 % (10.5-14.5); WBC 12.4 thou/uL (4.0-11.0)
[2019-07-18 06:03] LABS: PLATELET COUNT 523 thou/uL (150-400)
[2019-07-18 06:19] LABS: ANION GAP 6 mmol/L (7-16); BUN 19 mg/dL (7-18); CALCIUM 8.6 mg/dL (8.5-10.1); CHLORIDE 104 mmol/L (98-107); CO2 27 mmol/L (21-32); CREATININE 1.1 mg/dL (0.6-1.0); GLUCOSE 146 mg/dL (74-106); MAGNESIUM 1.3 mg/dL (1.8-2.4); POTASSIUM 4.8 mmol/L (3.5-5.1); SODIUM 137 mmol/L (136-145); TROPONIN-I <0.06 ng/mL (<0.06)
[2019-07-18 08:00] VITALS: BP 141/74
[2019-07-18 12:00] VITALS: BP 103/54
--- NOTE | 2019-07-18 12:04 | NUR ---
Attempted to call patient via phone but unavailable. Sp with dtr Kalani. Patient resides at home with dtr. All needs on one level. Patient uses walker in home. She is currently rec Speacialized care nursing only for foot wound. THerapy evals in process. Dtr hopeful patient will be able to dc home with HH resumption of care and adding therapy at home. Casemgt following.
[2019-07-18 16:30] VITALS: BP 147/55
--- NOTE | 2019-07-18 17:27 | NUR ---
PT CARE ASSUMED APPROX 0700. ASSESSMENTS CHARTED. PT DENIES SOA. REPORTS RIGHT SHOULDER PAIN. PT ALSO REPORTS ADEQUATE PAIN MANAGEMENT WITH TOPICAL AND PO MEDS GIVEN FOR RELIEF. VSS. UP WITH MIN ASSIST AND USE OF A WALKER. TOLERATING POC. DILT GTT STOPPED APPROX 1300 AND VITAL SIGNS HAVE REMAINED STABLE. WOUND CARE DONE PER ORDER. NO DISTRESS NOTED.
[2019-07-18 20:15] VITALS: BP 138/56
[2019-07-18 23:10] VITALS: BP 153/63
[2019-07-18 23:28] LABS: HEMOGLOBIN 13.1 gm/dL (12.0-15.0); MCH 28.5 pg (26.0-34.0); MCHC 32.8 g/dL (28.0-37.0); MCV 86.9 fL (80.0-100.0); RBC 4.6 mil/uL (4.20-5.00); RDW 14.5 % (10.5-14.5); WBC 13.9 thou/uL (4.0-11.0)
--- NOTE | 2019-07-18 23:54 | NUR ---
[employer]IO [employer] ANCHOR CALLED FOR DIFFICULTY SPEAKING AND DECREASED LOC. SEE [employer] ANCHOR FLOWSHEET.
[2019-07-19 00:06] LABS: ANION GAP 9 mmol/L (7-16); BUN 20 mg/dL (7-18); CALCIUM 8.7 mg/dL (8.5-10.1); CHLORIDE 102 mmol/L (98-107); CO2 25 mmol/L (21-32); CREATININE 1.4 mg/dL (0.6-1.0); GLUCOSE 199 mg/dL (74-106); POTASSIUM 4.5 mmol/L (3.5-5.1); SODIUM 136 mmol/L (136-145); TROPONIN-I <0.06 ng/mL (<0.06)
[2019-07-19 03:18] LABS: URINE BILIRUBIN NEGATIVE (Negative); URINE BLOOD NEGATIVE (Negative); URINE CLARITY SL CLOUDY; URINE COLOR YELLOW; URINE GLUCOSE-RANDOM* NEGATIVE (Negative); URINE KETONES NEGATIVE (Negative); URINE LEUKOCYTES 1+ (Negative); URINE NITRITE POSITIVE (Negative); URINE PROTEIN (DIPSTICK) TRACE (Negative); URINE SPECIFIC GRAVITY 1.025 (1.005-1.035); URINE UROBILINOGEN 0.2 E.U./dl (0.2-1.0)
[2019-07-19 03:32] LABS: SQUAMOUS 4-10 Moderate /LPF (0-3)
[2019-07-19 03:33] LABS: CASTS None Seen /LPF (None Seen); CRYSTALS None Seen /LPF (None Seen); MUCUS 0-3 Light strn/LPF (None Seen); URINE RBC 0-2 Rare /HPF (0-2)
[2019-07-19 04:45] VITALS: BP 137/96
--- NOTE | 2019-07-19 05:29 | NUR ---
ASSUMED CARE OF PATIENT AT 1900. AT INITIAL ASSESSMENT PATIENT C/O RIGHT SHOULDER PAIN AND HEADACHE. ADMINISTERED PRN NORCO ORDERED. PATIENT REPORTED MINIMAL RELIEF.AT 2300 PATIENT CONFUSED AND HAVING DIFFICULT TIME EXPRESSING THOUGHTS INTO COHERENT SENTENCES. TRANSMITTER CHIEF ACTIVATED. SEE TRANSMITTER CHIEF FLOWSHEET. LEAD RADIOLOGIC TECHNOLOGIST NOTIFIED AND FAMILY UPDATED. NEURO CONSULT CALLED. PATIENT TAKEN TO CT SCAN PENDING RESULTS. UA SENT AND IV FLUIDS STARTED. PATIENT HAS BEEN IN AFIB WITH HR IN 90s TO 110s. PATIENT DOES NOT USE CALL LIGHT APPROPRIATELY. BED ALARM IN PLACE. FREQUENTLY REORIENT PATIENT. DRESSING ON RIGHT HEEL REMAINS INTACT.
[2019-07-19 05:44] LABS: HEMATOCRIT 37.7 % (37.0-47.0); HEMOGLOBIN 12.3 gm/dL (12.0-15.0); MCH 28.7 pg (26.0-34.0); MCHC 32.7 g/dL (28.0-37.0); MCV 87.5 fL (80.0-100.0); RBC 4.3 mil/uL (4.20-5.00); RDW 14.4 % (10.5-14.5); WBC 10.8 thou/uL (4.0-11.0)
[2019-07-19 06:04] LABS: CALCIUM 8.5 mg/dL (8.5-10.1); CREATININE 1.1 mg/dL (0.6-1.0); MAGNESIUM 1.9 mg/dL (1.8-2.4); POTASSIUM 4.4 mmol/L (3.5-5.1)
--- NOTE | 2019-07-19 06:08 | NUR ---
Daughter Sierra updated on pt. condition. She will call sometime today to provide us a list of pt.'s home medication so we can update her home med list.
[2019-07-19 07:56] VITALS: BP 144/105
--- NOTE | 2019-07-19 08:07 | EKG ---
[facility] [place] [address] ELECTROCARDIOGRAM REPORT Name: MICHELLE CAR Room #: 217- ADM IN M.R.#: [id number] Admission: 07/17/19 Attend Phys: Gm Roberto MD Discharge: Date of : 47 Report #: [id number] THIS REPORT FOR: cc: FAM - Family physician unknown FAM - Family physician unknown Delta Silva MD [facility] THIS REPORT FOR: //name// [facility] Test Date: 2019-07-18 Test Time: 23:24:12 Pat Name: MICHELLE CAR Department: Room: [facility] Gender: F Human Resources Advisor: AGYShondaAN01 : 1945 Requested By: Charlene Leyva Order Number: [id number] MD: Delta Silva Measurements Intervals [place] Rate: 118 P: 0 NC: 64 QRS: 38 QRSD: 84 T: 10 QT: 348 QTc: 488 Interpretive Statements Atrial fibrillation Borderline prolonged QT interval Compared to ECG 07/17/2019 13:07:35 No significant change was found Electronically Signed On 07-19-2019 8:06:08 CDT by Delta Silva [email or web address] <ELECTRONICALLY SIGNED> By: Delta Silva MD, FACC 07/19/19 0806 2324 2324 Delta Silva MD, [facility] /EPI
--- NOTE | 2019-07-19 08:08 | EKG ---
[facility] [place] [address] ELECTROCARDIOGRAM REPORT Name: MICHELLE CAR Room #: 217-P ADM IN M.R.#: [id number] Admission: 07/17/19 Attend Phys: Gm Roberto MD Discharge: Date of : 47 Report #: [id number] THIS REPORT FOR: cc: FAM - Family physician unknown FAM - Family physician unknown Delta Silva MD [facility] ~ THIS REPORT FOR: //name// [facility] Test Date: 2019-07-18 Test Time: 23:29:27 Pat Name: MICHELLE CAR Department: Room: 217 Gender: F Nut Orchardist: AGYShondaAN01 : 1945 Requested By: Charlene Leyva Order Number: [id number] MD: Delta Silva Measurements Intervals [place] Rate: 115 P: [place]: QRS: 32 QRSD: 90 T: 11 QT: 358 QTc: 496 Interpretive Statements Atrial fibrillation Borderline prolonged QT interval Compared to ECG 07/17/2019 13:07:35 No significant change was found Electronically Signed On 07-19-2019 8:06:24 CDT by Delta Silva [email or web address] <ELECTRONICALLY SIGNED> By: Delta Silva MD, FACC 07/19/19 0806 2329 2329 Delta Silva MD, [facility] /EPI
--- NOTE | 2019-07-19 10:33 | 2DMMODE ---
[facility] [place] [address] 2 D/M-MODE ECHOCARDIOGRAM Name: MICHELLE CAR Room #: 217-P ADM IN M.R.#: [id number] Admission: 07/17/19 Attend Phys: Gm Roberto MD Discharge: Date of : 47 Report #: [id number] THIS REPORT FOR: cc: FAM - Family physician unknown FAM - Family physician unknown Delta Silva MD [facility] ~ APPROVED REPORT Study performed: 07/19/2019 09:51:35 EXAM: Comprehensive 2D, Doppler, and color-flow Echocardiogram Patient Location: Bedside Room #: 217 Status: routine BSA: 1.89 HR: 100 bpm BP: 137/96 mmHg Rhythm: Atrial Fibrillation Other Information Study Quality: Adequate Indications Atrial Fibrillation 2D Dimensions IVC: 23.00 mm Volumes Left Atrial Volume (Systole) Single Plane 4CH: 81.73 mL Single Plane 2CH: 98.85 mL LA ESV Index: 52.00 mL/m2 Aortic Valve AoV Peak Higinio.: 1.15 m/s AO Peak Gr.: 5.30 mmHg LVOT Max P.34 mmHg LVOT Max V: 0.76 m/s Pulmonary Valve PV Peak Higinio.: 0.90 m/s PV Peak Gr.: 3.27 mmHg Tricuspid Valve TR Peak Higinio.: 2.46 m/s TR Peak Gr.: 24.43 mmHg [facility] [address] [place] [address] 2 D/M-MODE ECHOCARDIOGRAM Name: MICHELLE CAR Room #: 217-P ADM IN M.R.#: [id number] Admission: 07/17/19 Attend Phys: Gm Roberto MD Discharge: Date of : 47 Report #: [id number] Pressure: 34.00 mmHg Left Ventricle The left ventricle is normal size. There is normal LV segmental wall motion. There is normal left ventricular wall thickness. The left ventricular systolic function is normal. The left ventricular ejection fraction is within the normal range. LVEF is 55-60%. This study is not technically sufficient to allow evaluation of the LV diastolic function due to atrial fibrillation. Right Ventricle The right ventricle is normal size. The right ventricular systolic function is normal. Atria Left atrium is dilated. Right atrium is dilated. Aortic Valve The aortic valve is normal in structure. No aortic regurgitation is present. There is no aortic valvular stenosis. Mitral Valve The mitral valve is normal in structure. Mild mitral regurgitation. No evidence of mitral valve stenosis. Tricuspid Valve The tricuspid valve is normal in structure. There is mild tricuspid regurgitation. Estimated PAP 34 mmHg. Pulmonic Valve The pulmonary valve is normal in structure. There is no pulmonic valvular regurgitation. Great Vessels The aortic root is normal in size. IVC is dilated and collapses <50% with inspiration. Pericardium There is no pericardial effusion. <Conclusion> The left ventricular systolic function is normal. There is normal LV segmental wall motion. LVEF is 55-60%. Both atria are dilated. The aortic valve is normal in structure. No aortic regurgitation or [facility] [address] [place] [address] 2 D/M-MODE ECHOCARDIOGRAM Name: MICHELLE CAR Room #: 217-P ADM IN M.R.#: [id number] Admission: 07/17/19 Attend Phys: Gm Roberto MD Discharge: Date of : 47 Report #: [id number] The mitral valve is normal in structure. Mild mitral regurgitation. There is mild tricuspid regurgitation. Estimated pulmonary artery pressure of 34 mmHg. There is no pericardial effusion. <ELECTRONICALLY SIGNED> By: Delta Silva MD, FACC 07/19/19 [phone] Delta Silva MD, FACC /INF
[2019-07-19 11:20] VITALS: BP 168/83
[2019-07-19] MEDS ORDERED: PRINIVIL20 M1 PO (11:46)
[2019-07-19] MEDS ORDERED: SPIRONOLACTONE25 MG PO (11:47)
[2019-07-19] MEDS ORDERED: GLIMEPIRIDE4 MG PO (11:48)
[2019-07-19] MEDS ORDERED: TOPROL XL25 MG PO (11:51)
[2019-07-19] MEDS ORDERED: DORYX MPC120 MG PO (11:52)
--- NOTE | 2019-07-19 16:12 | NUR ---
Patient with a rapid response last evening. Sp with patient she was able to tell me she is at [facility] discussed her working with therapy and if she thinks post acute care stay possibly at [facility]. Patient reported yes but could not recall the facility she has been in past. In system she has been at [facility] in past. Relayed that to patient and she reports yes and she liked the facility. Called dtr who reports she feels patient has had "these episodes" maybe 4 times in past 3 years which has been due to UTI. Dtr reports she wished she was able to catch this prior to as now a long hospital stay and possible rehab. Discussed with dtr and alerted patient interested in rehab. Dtr reports she does not feel like this is a good time to go to [facility] with Pandemic. She reports her mother has watched TV and aware of the virus. She wanted SW to sp with patient to alert her dtr thinks best to come home at [facility] with HH care. Called patient in room and alerted Kalani feels better to try home with HH care. Patient in agreement. THerapy evals in process will review how patient progressing.
--- NOTE | 2019-07-19 17:35 | NUR ---
discussed with dtr recommendation of 24/7 supervision. Dtr aware and reports she is providing 24/7 care.
--- NOTE | 2019-07-19 18:22 | NUR ---
RECEIVED PT'S CARE AROUND 0703; PT. ON BED; AFIB ST ON THE MONITOR; CAREER DEVELOPMENT COORDINATOR RESIDENTIAL YOUTH COUNSELOR NOTIFIED DURING ROUNDING; NO NEW ORDERS; PT. ALERT DURING SHIFT CHANGED; WHILE CAREER DEVELOPMENT COORDINATOR RESIDENTIAL YOUTH COUNSELOR ROUNDING PT. ALERT TO PERSON; DIFFICULT EXPRESSING WORDS; DURING ASSESSMENT PT. ALERT TO PERSON & PLACE; PNEUROLOGIST ROUNDING ON PT.; HOLD BP MEDICATION; PART AM MEDICATIONS GIVEN; PT. ABLE TO SWALLOW WELL; MRI SCREENING PERFORMED WITH DAUGHTER; PER DAUGHTER PT. BECOMES FORGETFUL WHEN HAD A UTI; PHYSICIAN NOTIFIED; PT. NOT ABLE TO HAVE MRI TWICE DUE TO C/O OVER R. SHOULDER; PHYSICIANS NOTIFIED; ABLE TO TOLERATE MRI WITH NURSE ASSISTANCE AT THE BED SIDE; PER NEUROLOGIST OK TO GIVE BP MEDICATIONS; HOME MEDICATIONS UPDATE; PHYSICIANS NOTIFIED; WOUND CARE PERFORMED; LATER ON THE EVENING REFUSED BOOTS; RESTLESS; CRYING; ST. WANTS TO GO; ABLE TO CALM DOWN AFTER EXPLAINED THE IMPORTANCE OF COMPLETING TREATMENT; AFTER GOING TO THE RESTHROOM LIGHTS OFF; TV OFF; MONITORING; ASSESSMENT CHARGED; FOLLOWING POC; WILL PASS ON REPORT;
[2019-07-19 20:15] VITALS: BP 167/70; BP 169/70
[2019-07-20 00:45] VITALS: BP 150/79
[2019-07-20 04:45] VITALS: BP 153/55
--- NOTE | 2019-07-20 05:36 | NUR ---
ASSUMED CARE OF PATIENT AT 1900. PATIENT CONTINUES TO HAVE DIFFICULTY FORMULATIG THOUGHTS INTO SENTENCES. SHE IS UNABLE TO STATE WHERE SHE IS OR WHAT DAY IT IS DESPITE REORIENTING PATIENT MULTIPLE TIMES. PATIENT WAS LESS IMPLUSIVE TONIGHT AND DID USE CALL LIGHT X1 AND THEN YELLED OUT FOR HELP X2. PATIENT REPORTS IMPROVEMENT OF PAIN IN RIGHT SHOULDER AND DID NOT REQUIRE PAIN MEDICATION T/O NOC. PATIENT FLUCTUATED BETWEEN AFIB AND SR.
[2019-07-20 07:30] VITALS: BP 149/49
--- NOTE | 2019-07-20 08:19 | EKG ---
[facility] [place] [address] ELECTROCARDIOGRAM REPORT Name: MICHELLE CAR Room #: 217-P ADM IN M.R.#: [id number] Admission: 07/17/19 Attend Phys: Gm Roberto MD Discharge: Date of : 47 Report #: [id number] THIS REPORT FOR: cc: FAM - Family physician unknown FAM - Family physician unknown Delta Silva MD [facility] THIS REPORT FOR: //name// [facility] Test Date: 2019-07-20 Test Time: 08:03:34 Pat Name: MICHELLE CAR Department: Room: 217 Gender: F Clicker Operator: Carlie NIETO : 1945 Requested By: Gm Roberto Order Number: [id number] MD: Delta Silva Measurements Intervals [place] Rate: 75 P: 0 ME: 190 QRS: 24 QRSD: 77 T: 15 QT: 422 QTc: 472 Interpretive Statements Atrial flutter with a controlled ventricular response Compared to ECG 07/18/2019 23:29:27 Heart rate has slowed Electronically Signed On 07-20-2019 8:17:57 CDT by Delta Silva [email or web address] <ELECTRONICALLY SIGNED> By: Delta Silva MD, FACC 07/20/1917 2 2 Delta Silva MD, [facility] /EPI
[2019-07-20 09:03] LABS: CALCIUM 8.7 mg/dL (8.5-10.1); CREATININE 1.2 mg/dL (0.6-1.0); POTASSIUM 4.8 mmol/L (3.5-5.1)
[2019-07-20 12:00] VITALS: BP 103/51
--- NOTE | 2019-07-20 16:52 | NUR ---
Case reviewed with the care team. Pt having rle angiogram tomorrow. DC plan is home with her dtr and resumption of [facility] when dc ready.
[2019-07-20 17:00] VITALS: BP 149/61
--- NOTE | 2019-07-20 18:41 | NUR ---
RECEIVED PT'S CARE AROUND 0710; PT. ON BED; RESTING WITH EYES CLOSED; EQUAL CHEST RISING NOTICED; AFIB ON THE MONITOR; DURING AM ASSESSMENT PT. ALERT TO PLACE, SITUATION & PERSON; FORGETFUL; NO C/O PAIN; AM MEDICATIONS GIVEN; INCREASED APPETITE THROUGH THE DAY; UP TO CHAIR FOR A FEW HOURS; REFUSED BOOTS DURING THE MORNING; RESTLESS; WOUND CARE PERFORMED BY WOUND CARE NURSE; NOTIFIED ABOUT BOUTS; CONSENT OBTAINED THROUGH DAUGHTER; NOTICED WIRE WEAVER RYTHM; EKG PER PROTOCOL; SHOWED TO [place]ET[place]O RADIOLOGIC TECH DURING ROUNDING; NO NEW ORDERS; BS ON THE 180s THROUGH THE AFTERNOON; PHYSICIAN NOTIFIED; ORDERS ON PLACED; ASSESSMENT CHARGED; FOLLOWING POC; WILL PASS ON REPORT;
[2019-07-20 20:15] VITALS: BP 149/71
[2019-07-21] VITALS (13 sets, daily range): BP systolic 99–175; BP diastolic 50–80
--- NOTE | 2019-07-21 05:34 | NUR ---
SLEPT MOST OF SHIFT. HAD 2 LARGE LOOSE GREEN STOOLS LAST NOC PRIOR TO BEDTIME. SOMETIMES SEARCHS FOR WORDS OF CORRECT ANSWER TO QUESTIONS. DENIES PRESENT COMPLAINTS. NPO PAST MIDNIGHT FOR AM PROCEDURE. WORKING ON GOALS AND PLAN OF CARE FOR NOC. PROGRESSING TOWARDS DISCHARGE GOALS SLOWLY. CONTINUE TO ASSES CLOSELY.
--- NOTE | 2019-07-21 07:46 | HC ---
[facility] [place] [address] CONSULTATION Name: MICHELLE CAR Room #: 217-P ADM IN .R.#: [id number] Admission: 07/17/19 Attend Phys: Gm Roberto MD Discharge: Date of : 47 Report #: [id number] THIS REPORT FOR: cc: EVANGELINA - Family physician unknown EVANGELINA - Family physician unknown John Dunn MD ~ CC: EVANGELINA unknown Gm Roberto DATE OF SERVICE: 07/18/2019 WOUND CARE CONSULTATION PERSONAL PHYSICIAN: Dr. Gm Roberto. CHIEF COMPLAINT: Right heel ulcer. HISTORY OF PRESENT ILLNESS: This is a 74-year-old white female who was admitted yesterday to the coronary care unit for atrial fibrillation with rapid ventricular response. The patient is currently being evaluated by Cardiology. Upon admission, the patient was noted to have a right heel ulceration. The patient states that the ulceration has started approximately 3-4 weeks ago and home health nurses have been coming out and doing some type of dressings. The patient states that she has been in bed quite a bit recently and thinks that this was a pressure ulceration from being in bed. The patient states she does have mild pain associated with the wound. It does not radiate. The patient states the pain is worse when she is lying in bed with her heel resting on the bed and better when her leg is elevated. The patient denies any other associated wounds at this time. The patient states she has never had any other wounds that she could not heal on her own. PAST MEDICAL HISTORY: Significant for recurrent urinary tract infections, paroxysmal atrial fibrillation, hypertension, hyperlipidemia, diabetes and previous CVA. CURRENT MEDICATIONS: Multiple, I reviewed the patient's medication list. DRUG ALLERGIES: PENICILLIN AND SULFA. SOCIAL HISTORY: The patient has a remote history of smoking. Denies alcohol use. FAMILY HISTORY: Not pertinent to current medical condition. REVIEW OF SYSTEMS: CONSTITUTIONAL: The patient denies fevers or chills. [facility] [address] [place] [address] CONSULTATION Name: MICHELLE CAR Room #: 217-P [facility]#: [id number] Admission: 07/17/19 Attend Phys: Gm Roberto MD Discharge: Date of : 47 Report #: [id number] NEUROLOGIC: The patient has overall generalized weakness, but no isolated weakness in arms or legs. EYES: No complaints. ENT: No complaints. CARDIAC: The patient was admitted for palpitations, which was rated as atrial fibrillation with rapid grossly response. Denies associated chest pain. The patient does have associated mild edema in the bilateral lower extremities. RESPIRATORY: The patient denies shortness of breath, cough or wheezes. GASTROINTESTINAL: The patient denies nausea, vomiting, abdominal pain. GENITOURINARY: The patient denies urgency or frequency. MUSCULOSKELETAL: No complaints. SKIN: There is a chronic ulceration on the right heel. PHYSICAL EXAMINATION: VITAL SIGNS: Temperature 36.4, pulse 73, respirations 16, BP 103/54. GENERAL: Alert and oriented to person and place, but not time, white female who is chronically ill appearing. HEENT: Normocephalic, atraumatic. Mucous membranes are dry. Pupils are round. Sclerae white. NECK: Without JVD. LUNGS: Clear. HEART: Regularly irregular. ABDOMEN: Soft, nontender. EXTREMITIES: The patient moves all extremities without difficulty. Evaluation of right heel reveals a chronic ulcer, which is 100% slough filled measuring approximately 3 x 3 cm. There is no palpable bone or exposed bone. No significant tunneling or undermining. Periwound is dry. The patient has 1+ dorsalis pedis pulses bilaterally. Rest of the right foot and toes are all intact. Left heel, foot and toes are all intact without ulcerations. NEUROLOGIC: Cranial nerves 2-12 grossly intact. Motor and sensory grossly intact. LABORATORY DATA: White count 12.4, hemoglobin 13.3, BUN 19, creatinine 1.1. Albumin 3.5. Chest x-ray shows no acute abnormalities. WOUND CARE COURSE: I spoke at length with the patient. At this point in time, we will order arterial Dopplers to make sure she has adequate blood flow to heal the wound. We will start her on Dakin's wet to dry dressings to the right heel changed daily. Cover with ABD. We will put on low air loss mattress, have her turned every 2 hours. We will get a heel protection boots for her to wear at all times in bed. We will continue to follow the patient as well. IMPRESSION: 1. Chronic ulceration, right heel consistent with a stage 3 decubitus ulcer. 2. Atrial fibrillation with rapid ventricular response. 3. Generalized debility. [address] [address] CONSULTATION Name: MICHELLE CAR Room #: 217-P ADM IN .R.#: [id number] Admission: 07/17/19 Attend Phys: Gm Roberto MD Discharge: Date of : 47 Report #: [id number] 4. Diabetes mellitus. PLAN: Described in length as above. We will continue to follow the patient. I appreciate ability to consult. <ELECTRONICALLY SIGNED> By: John Dunn MD 07/21/19 0746 [id number] John Dunn MD /nt
[2019-07-21 08:38] LABS: CALCIUM 8.6 mg/dL (8.5-10.1); CREATININE 1.1 mg/dL (0.6-1.0); POTASSIUM 4.5 mmol/L (3.5-5.1)
--- NOTE | 2019-07-21 14:36 | NUR ---
[facility] called to check on the pt. They can accept her for readmission over the holiday weekend if dc ready. Their oncall nurse will need to be notified of dc [phone] and her dc summary/instructions faxed to [phone].
--- NOTE | 2019-07-21 14:46 | NUR ---
Case discussed with the care team, Rob Owen from the Public Admin office, and Janna Claudio at [facility]. The PA's office aware of recommendations from the assisted and the attending for DNR and hospice referral. Rob to fax over their DNR paperwork for the attending to complete. They are agreeable to hospice referral once the pt is stable to return to the assisted. [facility] indicates that they have been in touch with the in day cm Bettye Mclain at the PA's office and will f/u once dc is indicated. No weekend dc indicated. Will forward the DNR paperwork to the attending for completion and refax it to Rob for their approval. Rob Owen [phone] ( PA's Case mngr) Janna Claudio w/ [facility] [phone]
--- NOTE | 2019-07-21 16:07 | NUR ---
ALERT AND ORIENTED X4, BUT FORGETFUL. ANGIOGRAM SUCCESSFUL TODAY WITH STENT PLACEMENT X4. ANTIBIOTIC GIVEN. LT GROIN SITE C/D/I. AFLUTTER PER TELE. IMPULSIVE, FALL PRECAUTIONS IN PLACE. CLOSE TO NURSE'S STATION. FREQUENT OBSERVATION.
[2019-07-22 05:04] VITALS: BP 112/57
[2019-07-22 05:18] LABS: HEMATOCRIT 38.8 % (37.0-47.0); HEMOGLOBIN 12.3 gm/dL (12.0-15.0); MCH 27.9 pg (26.0-34.0); MCHC 31.8 g/dL (28.0-37.0); MCV 87.8 fL (80.0-100.0); RBC 4.42 mil/uL (4.20-5.00)
[2019-07-22 05:52] LABS: CALCIUM 8.1 mg/dL (8.5-10.1); CREATININE 1.2 mg/dL (0.6-1.0); MAGNESIUM 2.1 mg/dL (1.8-2.4)
--- NOTE | 2019-07-22 06:02 | NUR ---
SLEPT MOST OF SHIFT. UP TO COMODE WITH STANDBY ASSIST. HAD INCONTINENCE OF LARGE AMOUNT OF LIQUID STOOL LAST NOC. COLD ROLL PACKER SHEET IRON NOTIFIED, PLACED IN ISOLATION, CDIFF SAMPLE SENT TO LAB, AND FECAL MANAGMENT TUBE PLACED. WORKING ON GOALS AND PLAN OF CARE FOR NOC. NOT PROGRESSING TOWARDS DISCHARGE GOALS AT THIS TIME. CONTINUE TO ASSES CLOSELY.
--- NOTE | 2019-07-22 06:10 | NUR ---
LEFT GROIN SITE DSG REMAINS D/I, NO HEMOTOMA OR BLEEDING NOTED. CONTINUE TO ASSES.
[2019-07-22 07:40] VITALS: BP 117/74
--- NOTE | 2019-07-22 10:49 | NUR ---
PT ASSESSED, VSS, UP TO BSC WITH ASSIST X 1, PT ORIENTED, BUT WILL TALK AND THEN WEEP A FEW SECONDS, THEN TALK AGAIN, CALLED DAUGHTER AND LET PT SPEAK WITH HER, THEN UPDATED DAUGHTER ON PT'S POC, PT UPSET ABOUT RECTAL TUBE, AWARE THAT IT'S NOT PERMANENT, PT IN TO SEE PT, WILL MONITOR
[2019-07-22 11:00] VITALS: BP 108/67; BP 124/64
--- NOTE | 2019-07-22 12:27 | NUR ---
[facility] REF[facility]- PATIENT VERY UPSET. THIS SANDING MACHINE OPERATOR MET WITH PATIENT AND DID LIFE REVIEW. PT. UPSET WITH RECENT SITUATIONS IN HER LIFE WELL ALL THE CHANGES IN HEALTH CARE PROCEDURES DURING COVID SITUATION. SANDING MACHINE OPERATOR WAS ABLE TO LISTEN AND REFLECT UPON HER LIFE. THE EVENT HERE SEEMS LIKE THE TIP OF THE ICEBERG. WE CONCLUDED IN PRAYER.
[2019-07-22 16:15] VITALS: BP 99/54
[2019-07-22 19:24] VITALS: BP 101/51
--- NOTE | 2019-07-23 01:03 | NUR ---
PATIENT ASSESSED AND IS ALERT X 4, FORGETFUL AT TIMES. SKIN WARM AND DRY. RESP EVEN AND UNLABORED. LUNGS ARE CTA. TELE- SHOWS NSR. TURNS SELF IN BED BUT HAS TO BE REMINDED, RIGHT HEEL SORE AND HAS A DRESSING ON IT. ON A MWECH CHOPPED DIET TAKES WATER WELL. SKIN VERY FRAIL LOOKING. PP 2/. USES BARRIER CREAM TO COCCYX AREA. STENTS PLACED ON LEFT GROIN YESTERDAY FOR RENAL TO INCREASE BLOOD FLOW. RETAL TUBE OUT HAD A LOOSE STOOL TONIGHT. VOIDED WELL. NEEDS ASSIST TO BSC PER 1 PERSON. USES A WALKER AT HOME. WAS OUT OF ISOLATION DUE TO C-DIFF NEGATIVE. HAS A RIGHT FA IV FOR ANTIBIOTICS, LOOKING HEALTHY. NO OTHER SKIN ISSUES. BLOOD SUGAR THIS EVENING WAS 195. CONT PLAN OF CARE. PAIN MED GIVEN WITH GOOD RELIEF. FAMILY BROUGHT A SET OF CLOTHES AND SLIPPERS. TONIGHT. DENIES ANY OTHER NEEDS.
--- NOTE | 2019-07-23 04:14 | NUR ---
PATIENT UNABLE TO VOID WAS UP TO BSC AND ONLY VOIDED ABOUT 20 CC. PLACED BACK IN BED AND BLADDER SCANNED HER SHE HAD 218CC LEFT IN BLADDER. REFUSES TO HAVE A CATH OR TO ST CATH HER. SHE GOT UPSET ABOUT THE RECTAL TUBE THEY PLACED YESTERDAY.
--- NOTE | 2019-07-23 05:02 | NUR ---
DR BANDA NOTIFIED BY MESSAGE ABOUT HER ONLY VOIDING 20CC.PUT HER ON BSC AND SHE VOIDED 20CC. THEN BLADDER SCANNED HER AND WAS 218. AWAITING FOR ORDERS.
--- NOTE | 2019-07-23 05:32 | NUR ---
DR CALLED ON HER LOW URINE OUTPUT. SHE REFUSES TO HAVE A RON OR BE ST. CATH. DR ORDERED 250 CC BOLUS X 1 NOW. STARTED IV NS IN ROOM . CONT TO MONITOR.
[2019-07-23 05:35] VITALS: BP 112/43
[2019-07-23 07:45] VITALS: BP 114/59
[2019-07-23 10:50] VITALS: BP 83/57
--- NOTE | 2019-07-23 11:01 | NUR ---
ORIENTED TO SELF. TRANSIENT CONFUSION, AGITATION. ASSISTED TO BSC TO VOID, THEN CHAIR. SHE DISCONTINUED HER TELE, REPLACED. FALL PRECAUTIONS IN PLACE. WILL CONTINUE TO FOLLOW CLOSELY.
[2019-07-23 11:05] LABS: ABSOLUTE NEUTROPHILS 11.7 thou/uL (1.4-8.2); BASOPHILS 0.7 % (0.0-2.0); EOSINOPHILS 4.2 % (0.0-3.0); HEMATOCRIT 34.3 % (37.0-47.0); HEMOGLOBIN 11.2 gm/dL (12.0-15.0); LYMPHOCYTES 6.4 % (24.0-44.0); MCH 28.6 pg (26.0-34.0); MCHC 32.6 g/dL (28.0-37.0); MCV 87.6 fL (80.0-100.0); MONOCYTES 6.1 % (1.0-8.0); PLATELET COUNT 629 thou/uL (150-400); POLYS 82.6 % (36.0-66.0); RBC 3.92 mil/uL (4.20-5.00); WBC 14.2 thou/uL (4.0-11.0)
[2019-07-23 11:15] LABS: ALBUMIN 2.6 g/dL (3.4-5.0); CALCIUM 7.4 mg/dL (8.5-10.1); CREATININE 1.8 mg/dL (0.6-1.0); MAGNESIUM 2.6 mg/dL (1.8-2.4); POTASSIUM 4.5 mmol/L (3.5-5.1); TOTAL BILIRUBIN 0.4 mg/dL (<0.1-1.0); TOTAL PROTEIN 6.1 g/dL (6.4-8.2)
--- NOTE | 2019-07-23 12:10 | EKG ---
[facility] [place] [address] ELECTROCARDIOGRAM REPORT Name: MICHELLE CAR Room #: 217- ADM IN M.R.#: [id number] Admission: 07/17/19 Attend Phys: Gm Roberto MD Discharge: Date of : 47 Report #: [id number] THIS REPORT FOR: cc: FAM - Family physician unknown FAM - Family physician unknown Sage Baron MD ~ THIS REPORT FOR: //name// [facility] Test Date: 2019-07-23 Test Time: 09:57:04 Pat Name: MICHELLE CAR Department: Room: [facility] Gender: F Summer Sessions Director: SILVINO : 1945 Requested By: Sage Baron Order Number: [id number] MD: Sage Baron Measurements Intervals [place] Rate: 75 P: NE: QRS: 3 QRSD: 88 T: 13 QT: 408 QTc: 456 Interpretive Statements Atrial flutter Low voltage, precordial leads Compared to ECG 07/20/2019 08:03:34 Low QRS voltage now present Electronically Signed On 07-23-2019 12:08:45 CDT by Sage Baron [email or web address] <ELECTRONICALLY SIGNED> By: Sage Baron MD 07/23/19 1208 [id number] Sage Baron MD /STEPHANIE
[2019-07-23 16:00] VITALS: BP 98/55
[2019-07-23 19:45] VITALS: BP 144/56
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
[2019-07-24 04:45] VITALS: BP 136/58
--- NOTE | 2019-07-24 04:49 | NUR ---
resting quietly jennifer. denies pain, she stated that she didnt want the gel for her shoulder when offered at midnight. careplan reviewed. using bsc with assist, she has not remembered to call for assist. she starts to get up and we assist. no additional phone calls from daughter jennifer.
[2019-07-24 10:13] VITALS: BP 114/71
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
[2019-07-24 12:00] VITALS: BP 103/50
[2019-07-24 16:00] VITALS: BP 119/58
[2019-07-24 20:15] VITALS: BP 142/46
[2019-07-25 04:15] VITALS: BP 140/63
--- NOTE | 2019-07-25 04:38 | NUR ---
after a few hours of sleep she remembered to call for assist. cooperative tonight. she is excited to get back home and has spoken of, a want for a cat or dog. continues on iv antibiotics. resting quietly.
[2019-07-25 08:00] VITALS: BP 150/63
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
[2019-07-25] MEDS ORDERED: ASPIR 8181 MG PO (10:32)
[2019-07-25] MEDS ORDERED: ATENOLOL 50MG T50 MG PO (10:34)
[2019-07-25 11:39] VITALS: BP 132/56
[2019-07-25] MEDS ORDERED: LISINOPRIL10 MG PO (12:34)
[2019-07-25] MEDS ORDERED: NITROFURANTOIN100 MG PO (12:35)
--- NOTE | 2019-07-25 15:53 | NUR ---
PT DISCHARGING TODAY [facility] FAXED DC ORDERS/SUMMARY SPOKE WITH STEPH IN INTAKE HE RECEIVED ORDERS AND WILL NOTIFY PT TIME OF VISITS.
--- NOTE | 2019-07-25 17:03 | NUR ---
SAW PT BEING DELIVERED BY TECH, PLACED IN HER CHAIR, CALL LIGHT IN BED. CAME IN TO CATCH UP ON MEDICATIONS, AND REVIEWED ORDERS, ONE WAS TO KEEP PT'S LEG STRAIGHT FOR SIX HOURS/BEDREST. NO REPORT RECEIVED. VIEWED L GROIN SITE, COVERED W/BANDAID/NO BLEEDING. LET PT KNOW HER RESTRICTIONS. ASKED FIRE INVESTIGATION MANAGER, SHE CALLED AND SOMEONE WILL CALL WITH REPORT
[2019-07-25 20:15] VITALS: BP 166/53
[2019-07-26 04:45] VITALS: BP 162/84
[2019-07-26] MEDS ORDERED: AMLODIPINE BESY10 MG PO (09:34)
[2019-07-26 10:08] LABS: CALCIUM 8.3 mg/dL (8.5-10.1); CREATININE 1.1 mg/dL (0.6-1.0); POTASSIUM 4.9 mmol/L (3.5-5.1)
[2019-07-26 12:00] VITALS: BP 87/51
[2019-07-26 13:16] VITALS: BP 108/55
--- NOTE | 2019-07-26 13:16 | NUR ---
PT DISCHARGING TODAY TO [facility] FAXED DC ORDERS/SUMMARY RECEIVED CONFIRMATION AND THEY WILL NOTIFY PT TIME OF VISITS.
== END 2019-07-26 16:28 | disposition home health service (06) | DRG 853 ==
LOC: ER 12:37 → EROBS 15:21 → 2N 15:21
PROVIDERS: Nurse Practitioner; Nurse Practitioner Family; Physician Assistant; ADMIT Internal Medicine
PROC: 04793DZ Dilation of Right Renal Artery with Intraluminal Device, Percutaneous Approach (ICD-10-PCS; principal; 2019-07-21)
PROC: 047J3DZ Dilation of Left External Iliac Artery with Intraluminal Device, Percutaneous Approach (ICD-10-PCS; principal; 2019-07-21)
PROC: B4181ZZ Fluoroscopy of Bilateral Renal Arteries using Low Osmolar Contrast (ICD-10-PCS; principal; 2019-07-21)
PROC: 047A3DZ Dilation of Left Renal Artery with Intraluminal Device, Percutaneous Approach (ICD-10-PCS; principal; 2019-07-21)
PROC: B41D1ZZ Fluoroscopy of Aorta and Bilateral Lower Extremity Arteries using Low Osmolar Contrast (ICD-10-PCS; principal; 2019-07-21)
PROC: 047K3DZ Dilation of Right Femoral Artery with Intraluminal Device, Percutaneous Approach (ICD-10-PCS; principal; 2019-07-21)
PROC: 04CK3ZZ Extirpation of Matter from Right Femoral Artery, Percutaneous Approach (ICD-10-PCS; principal; 2019-07-21)
DX: A41.9 Sepsis, unspecified organism (principal); L89.613 Pressure ulcer of right heel, stage 3; G92 Toxic encephalopathy; J96.20 Acute and chronic respiratory failure, unspecified whether with hypoxia or hypercapnia; N39.0 Urinary tract infection, site not specified; I48.92 Unspecified atrial flutter; R47.01 Aphasia; I69.354 Hemiplegia and hemiparesis following cerebral infarction affecting left non-dominant side; I50.32 Chronic diastolic (congestive) heart failure; I13.0 Hypertensive heart and chronic kidney disease with heart failure and stage 1 through stage 4 chronic kidney disease, or unspecified chronic kidney disease; I77.89 Other specified disorders of arteries and arterioles; M54.30 Sciatica, unspecified side; E11.42 Type 2 diabetes mellitus with diabetic polyneuropathy; G89.29 Other chronic pain; E78.00 Pure hypercholesterolemia, unspecified; N18.3 Chronic kidney disease, stage 3 (moderate); F41.9 Anxiety disorder, unspecified; E11.22 Type 2 diabetes mellitus with diabetic chronic kidney disease; I48.0 Paroxysmal atrial fibrillation; E78.5 Hyperlipidemia, unspecified; M19.90 Unspecified osteoarthritis, unspecified site; E83.42 Hypomagnesemia; M54.5 Low back pain; E11.51 Type 2 diabetes mellitus with diabetic peripheral angiopathy without gangrene; D63.8 Anemia in other chronic diseases classified elsewhere; I70.1 Atherosclerosis of renal artery; I72.8 Aneurysm of other specified arteries; B96.20 Unspecified Escherichia coli [E. coli] as the cause of diseases classified elsewhere; E66.01 Morbid (severe) obesity due to excess calories; Z87.891 Personal history of nicotine dependence; Z68.25 Body mass index [BMI] 25.0-25.9, adult; Z87.01 Personal history of pneumonia (recurrent); Z87.440 Personal history of urinary (tract) infections; Z90.710 Acquired absence of both cervix and uterus; Z79.899 Other long term (current) drug therapy; Z79.01 Long term (current) use of anticoagulants; Z88.0 Allergy status to penicillin; Z88.2 Allergy status to sulfonamides; Z88.1 Allergy status to other antibiotic agents; Z91.040 Latex allergy status; I70.201 Unspecified atherosclerosis of native arteries of extremities, right leg
CPT/HCPCS: 10081